=== PATIENT | male | born 1960 | race African-American/Black ===

== ENCOUNTER 2019-05-02 23:07 | Inpatient (IN) | payer MEDICAID ==
[~2019-05-02] VITALS: Ht 185.4 cm; Wt 110.2 kg
[~2019-05-02 23:07] MED LIST: AMLO5TAB4 PO; ASPI-1393 PO; ATOR40TA70 PO; CIPR-213 PO; LISI-604 PO; SULF1TAB48 PO
[2019-05-02] MEDS ORDERED: SODIUM CHLORIDE 0.9% 1,000 ML IV ONE ×2 (23:29→23:30)
[2019-05-02] MEDS ORDERED: KETOROLAC 30MG/ML VIAL IV STA (23:29)
[2019-05-02 23:56] LABS: HEMATOCRIT. 32.8 % (42.0-52.0); MEAN CORPUSCULAR HEMOGLOBIN 27.3 pg (28.0-32.0); MEAN CORPUSCULAR VOLUME 89.4 fL (80.0-94.0); MEAN PLATELET VOLUME 11.4 fl (7.4-10.4); PLATELET 230 x1000/uL (130-400); RED BLOOD CELL COUNT 3.67 mill/uL (4.7-6.1); RED CELL DISTRIBUTION WIDTH 13.9 % (11.6-14.6)
[2019-05-03] VITALS (48 sets, daily range): BP systolic 92–159; BP diastolic 38–95
[2019-05-03] LABS: CHLORIDE 86 mEq/L (98-107)
[2019-05-03 00:03] LABS: ETHANOL BLOOD < 10 mg/dL
[2019-05-03 00:08] LABS: BETA HYDROXYBUTYRATE 0.4 mMol/L (0.0-0.3)
[2019-05-03] MEDS ORDERED: SODIUM CHLORIDE 0.9% 1000ML BAG (SEPSIS BOLUS) IV NR (00:45)
[2019-05-03 01:35] LABS: ATYPICAL LYMPHOCYTES 1; PLATELET ESTIMATE NORMAL
[2019-05-03] MEDS ORDERED: INSULIN REGULAR (DRIP) 100 UNITS in SODIUM CHLORIDE 0.9% 100 ML IV ONE (02:00)
[2019-05-03] MEDS ORDERED: INSULIN REGULAR (DRIP) 100 UNITS in SODIUM CHLORIDE 0.9% 100 ML IV NR (02:15)
[2019-05-03 02:17] LABS: PHOSPHORUS 4.1 mg/dL (2.5-4.9)
[2019-05-03] MEDS ORDERED: MORPHINE SULFATE 2 MG/ML CPJ (NOT FOR IM USE) IV PRN (04:45)
[2019-05-03] MEDS ORDERED: INSULIN REGULAR (DRIP) 100 UNITS in SODIUM CHLORIDE 0.9% 99 ML IV PRN (04:45)
[2019-05-03] MEDS ORDERED: DEXTROSE 50% WATER 50ML SYRINGE IV PRN ×3 (04:45→14:15)
[2019-05-03] MEDS ORDERED: INSULIN REGULAR (DRIP) 100 UNITS in SODIUM CHLORIDE 0.9% 100 ML IV SCH (04:52)
[2019-05-03] MEDS: BLOOD SUGAR DIAGNOSTIC STRIP TEST SCH ×9 (04:55→21:00)
[2019-05-03] MEDS ORDERED: SODIUM CHLORIDE 0.9% 1,000 ML IV SCH (05:00)
[2019-05-03 06:16] LABS: CHLORIDE 100 mEq/L (98-107)
[2019-05-03] MEDS ORDERED: SODIUM CHLORIDE 0.45% 1,000 ML IV SCH (07:00)
[2019-05-03 07:03] LABS: BASOPHILS % 0.3 % (0.0-2.0); EOSINOPHILS % 0.3 % (0.0-5.0); HEMATOCRIT. 28.7 % (42.0-52.0); LYMPHOCYTES % 11.2 % (20.0-50.0); MEAN CORPUSCULAR VOLUME 86.5 fL (80.0-94.0); MEAN PLATELET VOLUME 10.5 fl (7.4-10.4); MONOCYTES % 6.3 % (2.0-8.0); NEUTROPHILS % 81.9 % (40.0-76.0); PLATELET 207 x1000/uL (130-400); RED BLOOD CELL COUNT 3.32 mill/uL (4.7-6.1); RED CELL DISTRIBUTION WIDTH 13.5 % (11.6-14.6)
[2019-05-03 08:51] LABS: BG BASE EXCESS -8.3 mmol/L (-2.0-2.0); BG CARBOXYHEMOGLOBIN 0.3 % (0.5-1.5); BG DEOXYHEMOGLOBIN 3.2 % (0.0-5.0); BG FRACTION INSPIRED OXYGEN 21; BG HCO3 ACT 17.2 mmol/L (22.0-26.0); BG METHEMOGLOBIN 0.3 % (0.0-1.5); BG OXYGEN SATURATION 96.8 % (92.0-98.5); BG OXYHEMOGLOBIN 96.2 % (94.0-97.0); BG PCO2 35.1 mmHg (35.0-45.0); BG PH 7.307 (7.350-7.450); BG PO2 100.6 mmHg (75.0-100.0); BG SAMPLE SITE RIGHT BRACHIAL; BG TOTAL HEMOGLOBIN 10.8 g/dL (12.0-18.0); BG VENT MODE ROOM AIR
[2019-05-03] MEDS ORDERED: ENOXAPARIN 30MG/0.3ML SYR SUBCUT SCH (09:00)
[2019-05-03 09:34] LABS: BETA HYDROXYBUTYRATE 0.1 mMol/L (0.0-0.3)
[2019-05-03] MEDS: SODIUM POLYSTYRENE SULFONATE 15 G/60 ML BOT PO NR (10:17)
[2019-05-03 13:54] LABS: CLARITY URINE CLOUDY (CLEAR); COLOR URINE YELLOW (YELLOW); KETONES URINE NEGATIVE (NEGATIVE); LEUKOCYTE ESTERASE URINE NEGATIVE (NEGATIVE); NITRITE URINE NEGATIVE (NEGATIVE); OCCULT BLOOD URINE 3+ (NEGATIVE); PROTEIN URINE 3+ (NEGATIVE); SPECIFIC GRAVITY URINE 1.017 (1.005-1.030); UROBILINOGEN URINE 0.2 E.U./dL (0.2-1.0)
[2019-05-03] MEDS: INSULIN LISPRO (MEDIUM DOSE) 100 UNITS/ML SUBCUT SCH ×2 (17:00→22:50)
[2019-05-03] MEDS: INSULIN LISPRO 100 UNITS/ML SUBCUT SCH (17:46)
[2019-05-03] MEDS: SODIUM CHLORIDE 0.45% 1,000 ML IV SCH (22:03)
[2019-05-03] MEDS: PIPERACILLIN/TAZ 3.375G PREMIX 50 ML IV SCH (22:03)
[2019-05-03] MEDS: INSULIN GLARGINE UD 100 UNITS/ML SYR SUBCUT SCH (22:47)
[2019-05-04] VITALS: BP 138/69
[2019-05-04 04:00] VITALS: BP 129/51
[2019-05-04] MEDS: PIPERACILLIN/TAZ 3.375G PREMIX 50 ML IV SCH ×3 (04:55→21:07)
[2019-05-04] MEDS ORDERED: VANCOMYCIN 1500MG in DEXTROSE 5% WATER 250ML IV NR (06:00)
[2019-05-04] MEDS: INSULIN LISPRO (MEDIUM DOSE) 100 UNITS/ML SUBCUT SCH ×4 (06:02→21:22)
[2019-05-04 06:09] LABS: BASOPHILS % 0.4 % (0.0-2.0); EOSINOPHILS % 2.8 % (0.0-5.0); HEMATOCRIT. 26.8 % (42.0-52.0); HEMOGLOBIN. 8.9 g/dL (14.0-18.0); LYMPHOCYTES % 19.4 % (20.0-50.0); MEAN CORPUSCULAR HEMOGLOBIN 26.7 pg (28.0-32.0); MEAN CORPUSCULAR VOLUME 80.3 fL (80.0-94.0); MEAN PLATELET VOLUME 10.3 fl (7.4-10.4); MONOCYTES % 7.1 % (2.0-8.0); NEUTROPHILS % 70.3 % (40.0-76.0); PLATELET 235 x1000/uL (130-400); RED BLOOD CELL COUNT 3.33 mill/uL (4.7-6.1); RED CELL DISTRIBUTION WIDTH 13.7 % (11.6-14.6)
[2019-05-04 06:41] LABS: PHOSPHORUS 3.8 mg/dL (2.5-4.9)
[2019-05-04 08:00] VITALS: BP 128/54
[2019-05-04] MEDS: INSULIN LISPRO 100 UNITS/ML SUBCUT SCH ×3 (08:05→17:20)
[2019-05-04] MEDS: BLOOD SUGAR DIAGNOSTIC STRIP TEST SCH ×4 (08:05→21:10)
[2019-05-04] MEDS: SODIUM POLYSTYRENE SULFONATE 15 G/60 ML BOT PO NR (09:19)
[2019-05-04] MEDS: INSULIN GLARGINE UD 100 UNITS/ML SYR SUBCUT SCH ×2 (09:29→22:13)
[2019-05-04] MEDS: ENOXAPARIN 40MG/0.4ML SYR SUBCUT SCH (09:30)
[2019-05-04] MEDS: SODIUM CHLORIDE 0.45% 1,000 ML IV SCH ×2 (11:43→18:00)
[2019-05-04 12:00] VITALS: BP 152/70
[2019-05-04 16:00] VITALS: BP 153/69
[2019-05-04] MEDS ORDERED: VANCOMYCIN 500 MG PREMIX 100 ML IV NR (17:00)
[2019-05-04 20:00] VITALS: BP 144/73
[2019-05-05] MEDS: PIPERACILLIN/TAZ 3.375G PREMIX 50 ML IV SCH (04:13)
[2019-05-05] MEDS: SODIUM CHLORIDE 0.45% 1,000 ML IV SCH ×2 (04:29→16:04)
[2019-05-05] MEDS: BLOOD SUGAR DIAGNOSTIC STRIP TEST SCH ×4 (06:27→22:35)
[2019-05-05 07:37] LABS: PHOSPHORUS 4.4 mg/dL (2.5-4.9)
[2019-05-05 07:39] LABS: BASOPHILS % 0.2 % (0.0-2.0); EOSINOPHILS % 2.9 % (0.0-5.0); LYMPHOCYTES % 23.6 % (20.0-50.0); MEAN CORPUSCULAR HEMOGLOBIN 26.9 pg (28.0-32.0); MEAN CORPUSCULAR VOLUME 80.5 fL (80.0-94.0); MEAN PLATELET VOLUME 10.3 fl (7.4-10.4); MONOCYTES % 7.6 % (2.0-8.0); NEUTROPHILS % 65.7 % (40.0-76.0); PLATELET 233 x1000/uL (130-400); RED BLOOD CELL COUNT 3.35 mill/uL (4.7-6.1); RED CELL DISTRIBUTION WIDTH 13.2 % (11.6-14.6)
[2019-05-05] MEDS: INSULIN LISPRO (MEDIUM DOSE) 100 UNITS/ML SUBCUT SCH ×4 (07:40→22:35)
[2019-05-05] MEDS: INSULIN LISPRO 100 UNITS/ML SUBCUT SCH ×3 (07:40→17:49)
[2019-05-05 08:00] VITALS: BP 142/66
[2019-05-05] MEDS ORDERED: VANCOMYCIN 1 G PREMIX 200 ML IV SCH (12:00)
[2019-05-05] MEDS: ENOXAPARIN 40MG/0.4ML SYR SUBCUT SCH (12:09)
[2019-05-05] MEDS: INSULIN GLARGINE UD 100 UNITS/ML SYR SUBCUT SCH ×2 (12:17→22:37)
[2019-05-05 13:15] LABS: *CREATININE RANDOM URINE 95.8 mg/dL (Not Estab.); MICROALBUMIN RANDOM URINE 1474.6 ug/mL (Not Estab.)
[2019-05-05] MEDS: CEFAZOLIN 1000MG PREMIX 50 ML IV SCH ×2 (15:04→22:29)
[2019-05-05 16:00] VITALS: BP 168/75
[2019-05-05 20:00] VITALS: BP 139/71
[2019-05-06 04:00] VITALS: BP 130/75
[2019-05-06] MEDS: SODIUM CHLORIDE 0.45% 1,000 ML IV SCH (04:07)
[2019-05-06] MEDS: CEFAZOLIN 1000MG PREMIX 50 ML IV SCH (05:46)
[2019-05-06 07:08] LABS: BASOPHILS % 0.4 % (0.0-2.0); EOSINOPHILS % 2.7 % (0.0-5.0); HEMATOCRIT. 26.3 % (42.0-52.0); HEMOGLOBIN. 8.8 g/dL (14.0-18.0); LYMPHOCYTES % 23.9 % (20.0-50.0); MEAN CORPUSCULAR VOLUME 80.9 fL (80.0-94.0); MEAN PLATELET VOLUME 9.8 fl (7.4-10.4); MONOCYTES % 6.6 % (2.0-8.0); NEUTROPHILS % 66.4 % (40.0-76.0); PLATELET 228 x1000/uL (130-400); RED BLOOD CELL COUNT 3.26 mill/uL (4.7-6.1); RED CELL DISTRIBUTION WIDTH 13.7 % (11.6-14.6)
[2019-05-06] MEDS: BLOOD SUGAR DIAGNOSTIC STRIP TEST SCH ×3 (08:18→17:20)
[2019-05-06] MEDS: ENOXAPARIN 40MG/0.4ML SYR SUBCUT SCH (08:23)
[2019-05-06] MEDS: INSULIN LISPRO (MEDIUM DOSE) 100 UNITS/ML SUBCUT SCH ×3 (09:03→19:00)
[2019-05-06] MEDS: INSULIN LISPRO 100 UNITS/ML SUBCUT SCH ×3 (09:04→19:00)
[2019-05-06] MEDS ORDERED: AMLODIPINE 10MG TABLET PO SCH (09:30)
[2019-05-06] MEDS ORDERED: INSULIN GLARGINE UD 100 UNITS/ML SYR SUBCUT SCH (10:00)
[2019-05-06] MEDS ORDERED: LIDOCAINE HCL 1% 20ML VIAL (Pyxis) INJ ONE (11:02)
[2019-05-06] MEDS ORDERED: SODIUM BICARBONATE 4% (2.4MEQ) 5ML VIAL IV ONE (11:02)
[2019-05-06 12:00] VITALS: BP 139/74
[2019-05-06] MEDS ORDERED: CEFAZOLIN 2000MG in DEXTROSE 5% WATER 100ML IV SCH (14:00)
[2019-05-06 16:00] VITALS: BP 140/67
[2019-05-06 16:51] VITALS: BP 139/74
== END 2019-05-06 18:20 | disposition home health service (06) | DRG 710 ==
LOC: ER 23:07 → MICUSO 05-03 00:49 → EDBEDREQSVC 05-03 00:51 → EDBEDREQ 05-03 00:51 → EDBEDREQTM 05-03 00:51 → ENRESERV 05-03 01:36 → 6EST 05-03 20:30
PROVIDERS: ADMIT Internal Medicine; ATTEND Internal Medicine
PROC: 0Q9R0ZZ Drainage of Left Toe Phalanx, Open Approach (ICD-10-PCS; principal; 2019-05-06)
PROC: 02HV33Z Insertion of Infusion Device into Superior Vena Cava, Percutaneous Approach (ICD-10-PCS; 2019-05-06)
PROC: B5181ZA Fluoroscopy of Superior Vena Cava using Low Osmolar Contrast, Guidance (ICD-10-PCS; 2019-05-06)
PROC: B54NZZA Ultrasonography of Left Upper Extremity Veins, Guidance (ICD-10-PCS; 2019-05-06)
PROC: 0QDR0ZZ Extraction of Left Toe Phalanx, Open Approach (ICD-10-PCS; 2019-05-06)
DX: A41.01 Sepsis due to Methicillin susceptible Staphylococcus aureus (principal); E11.00 Type 2 diabetes mellitus with hyperosmolarity without nonketotic hyperglycemic-hyperosmolar coma (NKHHC); N17.9 Acute kidney failure, unspecified; E46 Unspecified protein-calorie malnutrition; E11.22 Type 2 diabetes mellitus with diabetic chronic kidney disease; E11.10 Type 2 diabetes mellitus with ketoacidosis without coma; E87.5 Hyperkalemia; L97.509 Non-pressure chronic ulcer of other part of unspecified foot with unspecified severity; E11.621 Type 2 diabetes mellitus with foot ulcer; N18.9 Chronic kidney disease, unspecified; E11.51 Type 2 diabetes mellitus with diabetic peripheral angiopathy without gangrene; M86.9 Osteomyelitis, unspecified; E11.69 Type 2 diabetes mellitus with other specified complication; L97.529 Non-pressure chronic ulcer of other part of left foot with unspecified severity; E11.42 Type 2 diabetes mellitus with diabetic polyneuropathy; M20.30 Hallux varus (acquired), unspecified foot; I12.9 Hypertensive chronic kidney disease with stage 1 through stage 4 chronic kidney disease, or unspecified chronic kidney disease; L02.612 Cutaneous abscess of left foot; D64.9 Anemia, unspecified; Z79.2 Long term (current) use of antibiotics; Z79.82 Long term (current) use of aspirin; Z79.899 Other long term (current) drug therapy; Z91.19 Patient's noncompliance with other medical treatment and regimen
CPT/HCPCS: 36415; 36569; 36573; 36600; 71045; 73630; 73721; 76770; 80048; 80202; 80320; 82010; 82043; 82375; 82570; 82805; 82962; 83036; 83735; 83880; 83930; 84100; 84300; 84484; 87070; 87077; 88304; 88311; 93005; 93306; 93923; 96361; 96374; 97162; 97165; 97530; 99291; 99292; C1725; J0690; J1650; J1815; J1885; J2270; J2543; J3370; J3490; J7030; J7050; J7060; A4315; G0480